=== PATIENT | female | born 1935 | race Caucasian/White ===

== ENCOUNTER 2021-08-21 21:39 | Inpatient (IN) ==
[2021-08-22] MEDS ORDERED: Ondansetron 4 MG/2 ML VIAL IVP PRN ×2 (03:02→19:55)
[2021-08-22] MEDS ORDERED: Naloxone 0.4 MG/ML INJ IVP PRN ×2 (03:02→19:55)
[2021-08-22] MEDS ORDERED: 0.9 % Sodium Chloride 1,000 ML IVC SCH (03:15)
[2021-08-22] MEDS ORDERED: Famotidine 20 MG/2 ML VIAL IVP SCH (06:00)
[2021-08-22] MEDS ORDERED: Chloraseptic Spray 177 ML BOTTLE MM PRN (06:13)
[2021-08-22] MEDS ORDERED: cefTRIAXone 1,000 MG in 0.9 % Sodium Chloride Mini Bag 100 ML IVPB SCH (07:00)
[2021-08-22 07:55] LABS: Hematocrit 43.7 % (35.3-44.9); Hemoglobin 14.6 g/dL (11.5-15.4); Mean Corpuscular HGB Conc 33.4 g/dL (31.6-35.5); Mean Corpuscular Hemoglobin 31.4 pg (28.0-33.3); Platelet Count 356 K/mcL (140-400); Red Blood Count 4.65 M/mcL (3.82-4.97); Red Cell Distribution Width 13.9 % (11.5-14.5); White Blood Count 9.1 K/mcL (4.3-11.1)
[2021-08-22 08:20] LABS: Troponin I 0.14 ng/mL (< 0.04)
[2021-08-22] MEDS: Levalbuterol Neb 1.25 MG/3 ML IH SCH ×3 (09:09→19:56)
[2021-08-22 09:30] LABS: Folate > 22.3 ng/mL (3.0-16.0); Vitamin B12 428 pg/mL (250-1100); Vitamin D 25 Hydroxy 93 ng/mL (30-80)
[2021-08-22] MEDS ORDERED: E-Z-PAQUE (BARIUM SULF) SUSP 1 BOTTLE PO ONE (10:24)
[2021-08-22 10:42] LABS: Sodium 142 mEq/L (136-145)
[2021-08-22 10:43] LABS: BUN/Creatinine Ratio 28 (6-26); Blood Urea Nitrogen 29 mg/dL (8-23); Carbon Dioxide 31 mEq/L (23-29); Chloride 104 mEq/L (98-107); Chol/HDL Ratio 2.5 (0-4.9); Cholesterol 133 mg/dL (< 200); Ferritin 131 ng/mL (10-120); Glucose 107 mg/dL (70-105); HDL Cholesterol 54 mg/dL (40-59); Iron 20 mcg/dL (50-170); LDL Cholesterol,Calculated 64 mg/dL (< 100); Magnesium 2.1 mg/dL (1.6-2.6); Osmolality,Calculated 300 (280-300); Potassium 3.7 mEq/L (3.5-5.1); Triglycerides 75 mg/dL (< 150); eGFR For African Americans > 60 (> 60); eGFR For Non-African Americans 51 (> 60)
[2021-08-22 11:08] LABS: Estimated Average Glucose 134 mg/dl; Hemoglobin A1C 6.3 %
[2021-08-22] MEDS ORDERED: Lidocaine HCL 4 ML Topical Solution (Laryng-O-Jet Kit Sterile Pak) TP ONE (17:56)
[2021-08-22] MEDS ORDERED: Lidocaine -MPF 2% 5 ML VIAL ONE ×2 (17:56→20:34)
[2021-08-22] MEDS ORDERED: *HR* Succinylcholine 200 MG/10 ML VIAL IVP ONE (17:56)
[2021-08-22] MEDS ORDERED: *HR* Rocuronium Bromide 50 MG/5 ML VIAL ONE (17:56)
[2021-08-22] MEDS ORDERED: Ondansetron 4 MG/2 ML VIAL ONE ×2 (17:56→21:44)
[2021-08-22] MEDS: *HR* Metoprolol 5 MG/5 ML VIAL IVP SCH (18:07)
[2021-08-22] MEDS ORDERED: Heparin 1,000 UNITS/500 mL 500 ML ONE (19:29)
[2021-08-22] MEDS ORDERED: *HR* FentaNYL (PF) 100 MCG/2 ML VIAL ONE ×2 (19:45→21:18)
[2021-08-22] MEDS ORDERED: *HR* Propofol 200 MG/20 ML VIAL IVP ONE (19:45)
[2021-08-22] MEDS ORDERED: *HR* Phenylephrine 10 MG/ML VIAL ONE (19:51)
[2021-08-22] MEDS ORDERED: *HR* FentaNYL (PF) 100 MCG/2 ML VIAL IVP PRN (19:55)
[2021-08-22] MEDS ORDERED: *HR* Metoprolol 5 MG/5 ML VIAL IVP PRN (19:55)
[2021-08-22] MEDS ORDERED: Nitroglycerin 0.4 MG TAB.SUBL SL PRN (19:55)
[2021-08-22] MEDS ORDERED: Albuterol 2.5 MG/3 ML NEBULIZER IH PRN (19:55)
[2021-08-22] MEDS ORDERED: CefOXitin 2,000 MG VIAL ONE (20:33)
[2021-08-22] MEDS ORDERED: *HR* Metoprolol 5 MG/5 ML VIAL IVP ONE (21:40)
[2021-08-22] MEDS ORDERED: Acetaminophen IV 1,000 MG/100 ML BAG IVPB ONE (21:49)
[2021-08-22] MEDS ORDERED: Sugammadex Sodium 200 MG/2 ML VIAL IV ONE (22:37)
[2021-08-23] MEDS ORDERED: *HR* FentaNYL (PF) 100 MCG/2 ML VIAL IVP PRN (00:02)
[2021-08-23] MEDS ORDERED: 0.9 % Sodium Chloride 1,000 ML IVC SCH (00:02)
[2021-08-23] MEDS ORDERED: *HR* Metoprolol 5 MG/5 ML VIAL IVP PRN (00:02)
[2021-08-23] MEDS ORDERED: Nitroglycerin 0.4 MG TAB.SUBL SL PRN (00:02)
[2021-08-23] MEDS ORDERED: Ondansetron 4 MG/2 ML VIAL IVP PRN (00:02)
[2021-08-23] MEDS ORDERED: Chloraseptic Spray 177 ML BOTTLE MM PRN (00:02)
[2021-08-23] MEDS ORDERED: Naloxone 0.4 MG/ML INJ IVP PRN ×2 (00:02)
[2021-08-23] MEDS ORDERED: Albuterol 2.5 MG/3 ML NEBULIZER IH PRN (00:02)
[2021-08-23] MEDS: Ondansetron 4 MG/2 ML VIAL IVP PRN ×2 (00:29→12:09)
[2021-08-23] MEDS: *HR* Metoprolol 5 MG/5 ML VIAL IVP SCH ×5 (01:24→23:57)
[2021-08-23 01:46] LABS: Hematocrit 41.7 % (35.3-44.9); Hemoglobin 13.8 g/dL (11.5-15.4); Mean Corpuscular HGB Conc 33.1 g/dL (31.6-35.5); Mean Corpuscular Hemoglobin 31.6 pg (28.0-33.3); Mean Corpuscular Volume 95.4 fL (83.0-100.0); Mean Platelet Volume 11.2 fL (9.4-12.4); Platelet Count 370 K/mcL (140-400); Red Blood Count 4.37 M/mcL (3.82-4.97); Red Cell Distribution Width 13.8 % (11.5-14.5); White Blood Count 11.2 K/mcL (4.3-11.1)
[2021-08-23 02:07] LABS: BUN/Creatinine Ratio 31 (6-26); Blood Urea Nitrogen 27 mg/dL (8-23); Calcium 8.4 mg/dL (8.6-10.3); Carbon Dioxide 21 mEq/L (23-29); Chloride 106 mEq/L (98-107); Glucose 145 mg/dL (70-105); Osmolality,Calculated 300 (280-300); Potassium 3.7 mEq/L (3.5-5.1); Sodium 141 mEq/L (136-145); eGFR For African Americans > 60 (> 60); eGFR For Non-African Americans > 60 (> 60)
[2021-08-23 03:32] LABS: % Iron Saturation 7 % (15-50); Transferrin 209 mg/dL (203-362)
[2021-08-23] MEDS: Levalbuterol Neb 1.25 MG/3 ML IH SCH ×4 (04:00→20:13)
[2021-08-23] MEDS: Morphine Sulfate 2 MG/ML SYRINGE IVP PRN ×2 (06:31→08:31)
[2021-08-23] MEDS ORDERED: cefTRIAXone 1,000 MG in 0.9 % Sodium Chloride Mini Bag 100 ML IVPB SCH (07:00)
[2021-08-23] MEDS ORDERED: Famotidine 20 MG/2 ML VIAL IVP SCH ×2 (09:00)
[2021-08-23] MEDS: Acetaminophen IV 1,000 MG/100 ML BAG IVPB SCH ×3 (12:10→23:56)
[2021-08-24] MEDS: Levalbuterol Neb 1.25 MG/3 ML IH SCH ×4 (04:03→20:10)
[2021-08-24 05:48] LABS: Basophils % 0.3 %; Eosinophils % 0.2 %; Hematocrit 40.6 % (35.3-44.9); Hemoglobin 12.9 g/dL (11.5-15.4); Immature Granulocytes % 0.6 % (0-4); Lymphocytes # 0.6 K/mcL (0.6-4.6); Lymphocytes % 5.1 %; Mean Corpuscular HGB Conc 31.8 g/dL (31.6-35.5); Mean Corpuscular Volume 97.6 fL (83.0-100.0); Mean Platelet Volume 11.1 fL (9.4-12.4); Monocytes # 1.3 K/mcL (0.0-1.3); Monocytes % 11.9 %; Platelet Count 301 K/mcL (140-400); Red Blood Count 4.16 M/mcL (3.82-4.97); Red Cell Distribution Width 14.5 % (11.5-14.5); Segmented Neutrophils % 81.9 %
[2021-08-24] MEDS: Acetaminophen IV 1,000 MG/100 ML BAG IVPB SCH ×3 (06:00→12:00)
[2021-08-24 06:11] LABS: BUN/Creatinine Ratio 33 (6-26); Blood Urea Nitrogen 24 mg/dL (8-23); Calcium 8.6 mg/dL (8.6-10.3); Carbon Dioxide 24 mEq/L (23-29); Chloride 110 mEq/L (98-107); Glucose 131 mg/dL (70-105); Magnesium 1.9 mg/dL (1.6-2.6); Osmolality,Calculated 304 (280-300); Phosphorous 2.3 mg/dL (2.7-4.5); Platelet Estimate Normal (Normal); Potassium 3.9 mEq/L (3.5-5.1); Sodium 144 mEq/L (136-145); eGFR For African Americans > 60 (> 60); eGFR For Non-African Americans > 60 (> 60)
[2021-08-24] MEDS: *HR* Metoprolol 5 MG/5 ML VIAL IVP SCH ×4 (06:29→20:44)
[2021-08-24] MEDS ORDERED: Isovue-370 500 ML BOTTLE IVP ONE (12:07)
[2021-08-24] MEDS ORDERED: Ringers Solution, Lactated 1,000 ML IVC SCH (14:15)
[2021-08-24] MEDS: Pantoprazole 40 MG VIAL IVP SCH (18:09)
[2021-08-24] MEDS: *HR* Heparin 5,000 UNIT/ML VIAL SQ SCH (18:09)
[2021-08-24] MEDS: Ondansetron 4 MG/2 ML VIAL IVP PRN (22:31)
[2021-08-25] MEDS: Acetaminophen IV 1,000 MG/100 ML BAG IVPB SCH ×4 (01:54→12:13)
[2021-08-25] MEDS: *HR* Metoprolol 5 MG/5 ML VIAL IVP SCH ×4 (04:07→21:15)
[2021-08-25] MEDS: Levalbuterol Neb 1.25 MG/3 ML IH SCH ×4 (04:12→20:28)
[2021-08-25 05:13] LABS: BUN/Creatinine Ratio 25 (6-26); Blood Urea Nitrogen 14 mg/dL (8-23); Calcium 8.8 mg/dL (8.6-10.3); Carbon Dioxide 25 mEq/L (23-29); Chloride 106 mEq/L (98-107); Glucose 102 mg/dL (70-105); Magnesium 1.9 mg/dL (1.6-2.6); Osmolality,Calculated 295 (280-300); Phosphorous 2.4 mg/dL (2.7-4.5); Potassium 4.8 mEq/L (3.5-5.1); Sodium 142 mEq/L (136-145); eGFR For African Americans > 60 (> 60); eGFR For Non-African Americans > 60 (> 60)
[2021-08-25 05:22] LABS: Basophils # 0.1 K/mcL (0.0-0.2); Basophils % 0.4 %; Eosinophils # 0.1 K/mcL (0.0-0.6); Eosinophils % 0.8 %; Hematocrit 35.9 % (35.3-44.9); Hemoglobin 11.5 g/dL (11.5-15.4); Immature Granulocytes % 1.2 % (0-4); Immature Platelets 4.6 % (1.1-6.1); Lymphocytes # 0.9 K/mcL (0.6-4.6); Lymphocytes % 7.7 %; Mean Corpuscular Hemoglobin 30.9 pg (28.0-33.3); Mean Corpuscular Volume 96.5 fL (83.0-100.0); Monocytes # 1.3 K/mcL (0.0-1.3); Monocytes % 10.7 %; Neutrophils # 9.3 K/mcL (1.6-8.9); Red Blood Count 3.72 M/mcL (3.82-4.97); Red Cell Distribution Width 14.7 % (11.5-14.5); Segmented Neutrophils % 79.2 %; White Blood Count 11.7 K/mcL (4.3-11.1)
[2021-08-25] MEDS: Pantoprazole 40 MG VIAL IVP SCH ×2 (05:41→16:44)
[2021-08-25] MEDS: *HR* Heparin 5,000 UNIT/ML VIAL SQ SCH ×2 (05:41→16:43)
[2021-08-25 06:30] LABS: Platelet Count 277 K/mcL (140-400); Platelet Estimate Normal (Normal)
[2021-08-26] MEDS: *HR* Metoprolol 5 MG/5 ML VIAL IVP SCH ×2 (02:55→10:35)
[2021-08-26] MEDS: Levalbuterol Neb 1.25 MG/3 ML IH SCH ×4 (04:51→21:06)
[2021-08-26] MEDS: Pantoprazole 40 MG VIAL IVP SCH ×2 (05:50→18:00)
[2021-08-26] MEDS: *HR* Heparin 5,000 UNIT/ML VIAL SQ SCH ×2 (05:50→18:01)
[2021-08-26] MEDS: Venlafaxine XR (24 HR) 37.5 MG CAP.ER.24H PO SCH (12:55)
[2021-08-26] MEDS: Bisacodyl 10 MG RECTAL SUPPOSITORY RC SCH (16:30)
[2021-08-26 18:31] LABS: Magnesium 1.4 mg/dL (1.6-2.6); Phosphorous 2.2 mg/dL (2.7-4.5)
[2021-08-27] MEDS: Levalbuterol Neb 1.25 MG/3 ML IH SCH ×4 (03:32→21:47)
[2021-08-27 05:02] LABS: Basophils # 0.1 K/mcL (0.0-0.2); Basophils % 0.6 %; Eosinophils # 0.1 K/mcL (0.0-0.6); Eosinophils % 0.9 %; Hematocrit 35.8 % (35.3-44.9); Immature Granulocytes % 3.7 % (0-4); Lymphocytes # 0.6 K/mcL (0.6-4.6); Lymphocytes % 7.1 %; Mean Corpuscular HGB Conc 33.5 g/dL (31.6-35.5); Mean Corpuscular Hemoglobin 31.4 pg (28.0-33.3); Mean Corpuscular Volume 93.7 fL (83.0-100.0); Mean Platelet Volume 10.9 fL (9.4-12.4); Monocytes # 1.2 K/mcL (0.0-1.3); Monocytes % 14.7 %; Platelet Count 354 K/mcL (140-400); Red Blood Count 3.82 M/mcL (3.82-4.97); Red Cell Distribution Width 13.5 % (11.5-14.5); White Blood Count 8.4 K/mcL (4.3-11.1)
[2021-08-27 05:13] LABS: Neutrophils # 6.1 K/mcL (1.6-8.9)
[2021-08-27] MEDS: *HR* Heparin 5,000 UNIT/ML VIAL SQ SCH (05:15)
[2021-08-27] MEDS: Pantoprazole 40 MG VIAL IVP SCH ×2 (05:16→17:30)
[2021-08-27 05:28] LABS: BUN/Creatinine Ratio 21 (6-26); Blood Urea Nitrogen 12 mg/dL (8-23); Calcium 9.6 mg/dL (8.6-10.3); Carbon Dioxide 28 mEq/L (23-29); Chloride 101 mEq/L (98-107); Glucose 141 mg/dL (70-105); Osmolality,Calculated 288 (280-300); Potassium 3.1 mEq/L (3.5-5.1); Sodium 138 mEq/L (136-145); eGFR For African Americans > 60 (> 60); eGFR For Non-African Americans > 60 (> 60)
[2021-08-27 05:39] LABS: Platelet Estimate Normal (Normal)
[2021-08-27] MEDS: Ondansetron 4 MG/2 ML VIAL IVP PRN ×2 (06:35→16:15)
[2021-08-27] MEDS ORDERED: Potassium Phosphate 44 MEQ in 0.9 % Sodium Chloride 250 ML IVPB ONE (07:20)
[2021-08-27] MEDS: Aspirin Enteric Coated 81 MG Tablet PO SCH (09:08)
[2021-08-27] MEDS: Venlafaxine XR (24 HR) 37.5 MG CAP.ER.24H PO SCH (09:11)
[2021-08-27] MEDS: Bisacodyl 10 MG RECTAL SUPPOSITORY RC SCH (09:11)
[2021-08-27] MEDS ORDERED: Acetaminophen IV 1,000 MG/100 ML BAG IVPB ONE (16:24)
[2021-08-27] MEDS ORDERED: Acetaminophen 325 MG TABLET PO PRN (22:00)
[2021-08-28] MEDS: Levalbuterol Neb 1.25 MG/3 ML IH SCH ×4 (04:25→22:23)
[2021-08-28] MEDS: Pantoprazole 40 MG VIAL IVP SCH (05:27)
[2021-08-28 07:00] LABS: Magnesium 1.7 mg/dL (1.6-2.6); Phosphorous 4.6 mg/dL (2.7-4.5)
[2021-08-28 07:59] LABS: BUN/Creatinine Ratio 23 (6-26); Blood Urea Nitrogen 17 mg/dL (8-23); Carbon Dioxide 26 mEq/L (23-29); Chloride 101 mEq/L (98-107); Glucose 100 mg/dL (70-105); Osmolality,Calculated 284 (280-300); Potassium 3.8 mEq/L (3.5-5.1); Sodium 136 mEq/L (136-145); eGFR For African Americans > 60 (> 60); eGFR For Non-African Americans > 60 (> 60)
[2021-08-28] MEDS: Aspirin Enteric Coated 81 MG Tablet PO SCH (08:42)
[2021-08-28] MEDS: Venlafaxine XR (24 HR) 37.5 MG CAP.ER.24H PO SCH (08:42)
[2021-08-28] MEDS: Bisacodyl 10 MG RECTAL SUPPOSITORY RC SCH (08:42)
[2021-08-28 20:08] VITALS: BP 98/62
[2021-08-29] MEDS: Levalbuterol Neb 1.25 MG/3 ML IH SCH ×2 (04:33→11:41)
[2021-08-29 06:58] VITALS: PULSE 80; TEMP 97.2
[2021-08-29] MEDS: Aspirin Enteric Coated 81 MG Tablet PO SCH (08:53)
[2021-08-29] MEDS: Bisacodyl 10 MG RECTAL SUPPOSITORY RC SCH (08:54)
[2021-08-29] MEDS: Venlafaxine XR (24 HR) 37.5 MG CAP.ER.24H PO SCH (08:55)
[2021-08-29 11:43] VITALS: O2SAT 97
== END 2021-08-29 14:23 | disposition home health service (06) | DRG 329 ==
LOC: 3ANU → SUATTDRO 08-22 00:51
PROVIDERS: ADMIT Internal Medicine; ATTEND Internal Medicine

== ENCOUNTER 2021-08-31 00:51 | Inpatient (IN) ==
[2021-08-31] MEDS ORDERED: Naloxone 0.4 MG/ML INJ IVP PRN (03:08)
[2021-08-31] MEDS ORDERED: 0.9 % Sodium Chloride 1,000 ML IVC SCH (03:15)
[2021-08-31 03:31] LABS: Basophils % 0.9 %; Eosinophils # 0.1 K/mcL (0.0-0.6); Eosinophils % 0.4 %; Hematocrit 29.4 % (35.3-44.9); Immature Granulocytes % 5.9 % (0-4); Lymphocytes # 1.1 K/mcL (0.6-4.6); Lymphocytes % 6.7 %; Mean Corpuscular Hemoglobin 30.9 pg (28.0-33.3); Mean Corpuscular Volume 93.6 fL (83.0-100.0); Mean Platelet Volume 10.2 fL (9.4-12.4); Monocytes # 1.4 K/mcL (0.0-1.3); Monocytes % 8.3 %; Neutrophils # 12.7 K/mcL (1.6-8.9); Platelet Count 326 K/mcL (140-400); Red Blood Count 3.14 M/mcL (3.82-4.97); Red Cell Distribution Width 14.2 % (11.5-14.5); Segmented Neutrophils % 77.8 %
[2021-08-31 03:33] LABS: Basophils # 0.2 K/mcL (0.0-0.2); Hemoglobin 9.7 g/dL (11.5-15.4); White Blood Count 16.3 K/mcL (4.3-11.1)
[2021-08-31 03:44] LABS: INR 1.1; Prothrombin Time 12.3 Seconds (9.4-12.1)
[2021-08-31 03:47] LABS: Activated Partial Thrombo Time 28.1 Seconds (26.0-36.0)
[2021-08-31 03:48] LABS: Large Platelets Present (Not Present); Platelet Estimate Normal (Normal)
[2021-08-31 03:54] LABS: Alanine Aminotransferase 14 Units/L (7-52); Albumin 2.4 g/dL (3.5-5.7); Albumin/Globulin Ratio 1.2 (1.1-2.2); Alkaline Phosphatase 57 Units/L (34-104); Aspartate Amino Transferase 23 Units/L (13-39); BUN/Creatinine Ratio 27 (6-26); Bilirubin,Total 0.3 mg/dL (0.3-1.0); Blood Urea Nitrogen 14 mg/dL (8-23); Calcium 7.6 mg/dL (8.6-10.3); Carbon Dioxide 27 mEq/L (23-29); Chloride 105 mEq/L (98-107); Glucose 63 mg/dL (70-105); Osmolality,Calculated 285 (280-300); Potassium 3.4 mEq/L (3.5-5.1); Sodium 138 mEq/L (136-145); Total Protein 4.4 g/dL (6.4-8.9); eGFR For African Americans > 60 (> 60); eGFR For Non-African Americans > 60 (> 60)
[2021-08-31 03:59] LABS: Procalcitonin 0.72 ng/mL (0.00-0.15)
[2021-08-31] MEDS: Azithromycin 500 MG in 0.9 % Sodium Chloride 250 ML IVPB SCH (06:42)
[2021-08-31] MEDS ORDERED: Ipratropium 1 PUFF INHALER IH PRN (06:46)
[2021-08-31] MEDS ORDERED: Potassium Chloride 40 MEQ, Lidocaine 1% 2 ML in 0.9 % Sodium Chloride 500 ML IVPB ONE (07:26)
[2021-08-31] MEDS: 0.9 % Sodium Chloride 1,000 ML IVC SCH ×2 (07:47→21:36)
[2021-08-31] MEDS: Piperacillin/Tazobactam 3.375 GM in 0.9 % Sodium Chloride Mini Bag 100 ML IVPB SCH ×2 (07:47→15:26)
[2021-08-31] MEDS ORDERED: Vancomycin 1,500 MG/265 ML IV.SOLN IVPB ONE (08:00)
[2021-08-31 10:28] LABS: % Iron Saturation 30 % (15-50); Iron 51 mcg/dL (50-170); Transferrin 122 mg/dL (203-362)
[2021-08-31 10:41] LABS: Thyroid Stimulating Hormone 2.258 mcIU/mL (0.340-5.600)
[2021-08-31 10:47] LABS: Ferritin 124 ng/mL (10-120)
[2021-08-31 10:54] LABS: Folate > 22.3 ng/mL (3.0-16.0); Vitamin B12 1204 pg/mL (250-1100)
[2021-08-31] MEDS ORDERED: Dextrose Gel 15 GM/37.5 ML TUBE PO PRN ×2 (12:03)
[2021-08-31] MEDS ORDERED: *HR* Dextrose 50 % in Water (Syg) 50 ML SYRINGE IVP PRN (12:03)
[2021-08-31] MEDS ORDERED: D5% in Water 1,000 ML IVC PRN (12:03)
[2021-08-31] MEDS ORDERED: Vancomycin 1,250 MG/262.5 ML IV.SOLN IVPB SCH (20:00)
[2021-08-31] MEDS: Ondansetron 4 MG/2 ML VIAL IVP PRN (20:37)
[2021-09-01] MEDS: Piperacillin/Tazobactam 3.375 GM in 0.9 % Sodium Chloride Mini Bag 100 ML IVPB SCH ×4 (00:04→23:25)
[2021-09-01 04:31] LABS: Basophils % 0.3 %; Eosinophils # 0.2 K/mcL (0.0-0.6); Eosinophils % 1.3 %; Hematocrit 29.7 % (35.3-44.9); Hemoglobin 9.4 g/dL (11.5-15.4); Immature Granulocytes % 9.8 % (0-4); Lymphocytes % 7.3 %; Mean Corpuscular HGB Conc 31.6 g/dL (31.6-35.5); Mean Corpuscular Hemoglobin 30.4 pg (28.0-33.3); Mean Corpuscular Volume 96.1 fL (83.0-100.0); Mean Platelet Volume 10.3 fL (9.4-12.4); Monocytes # 1.6 K/mcL (0.0-1.3); Monocytes % 10.1 %; Neutrophils # 11.2 K/mcL (1.6-8.9); Nucleated Red Blood Cells 0.1 /100 WBC (0); Platelet Count 303 K/mcL (140-400); Red Blood Count 3.09 M/mcL (3.82-4.97); Red Cell Distribution Width 14.5 % (11.5-14.5); Segmented Neutrophils % 71.2 %; White Blood Count 15.7 K/mcL (4.3-11.1)
[2021-09-01 04:49] LABS: BUN/Creatinine Ratio 13 (6-26); Blood Urea Nitrogen 7 mg/dL (8-23); Calcium 6.9 mg/dL (8.6-10.3); Carbon Dioxide 26 mEq/L (23-29); Chloride 109 mEq/L (98-107); Glucose 79 mg/dL (70-105); Osmolality,Calculated 285 (280-300); Potassium 3.4 mEq/L (3.5-5.1); Sodium 139 mEq/L (136-145); eGFR For African Americans > 60 (> 60); eGFR For Non-African Americans > 60 (> 60)
[2021-09-01 05:04] LABS: Basophils # 0.1 K/mcL (0.0-0.2); Lymphocytes # 1.2 K/mcL (0.6-4.6)
[2021-09-01 05:39] LABS: Platelet Estimate Normal (Normal)
[2021-09-01] MEDS: Azithromycin 500 MG in 0.9 % Sodium Chloride 250 ML IVPB SCH (06:15)
[2021-09-01] MEDS: Aspirin Enteric Coated 81 MG Tablet PO SCH (07:49)
[2021-09-01] MEDS: Venlafaxine XR (24 HR) 37.5 MG CAP.ER.24H PO SCH (07:50)
[2021-09-01] MEDS: Cholecalciferol (D-3) 1,000 UNIT (25MCG) TABLET PO SCH (07:50)
[2021-09-01] MEDS: Ondansetron 4 MG/2 ML VIAL IVP PRN (07:51)
[2021-09-01] MEDS ORDERED: Vancomycin 1,250 MG/262.5 ML IV.SOLN IVPB SCH (08:00)
[2021-09-01] MEDS ORDERED: PRAVASTATIN SODIUM 40 MG PO SCH (09:00)
[2021-09-01] MEDS ORDERED: Mirabegron [Myrbetriq] 50 MG Tab.Er.24h PO SCH (09:00)
[2021-09-01] MEDS: 0.9 % Sodium Chloride 1,000 ML IVC SCH ×2 (10:58→23:26)
[2021-09-01] MEDS: Budesonide/Formoterol 160/4.5 1 PUFF INH IH SCH (22:44)
[2021-09-02 04:59] LABS: BUN/Creatinine Ratio 9 (6-26); Blood Urea Nitrogen 5 mg/dL (8-23); Calcium 6.8 mg/dL (8.6-10.3); Carbon Dioxide 28 mEq/L (23-29); Chloride 108 mEq/L (98-107); Glucose 95 mg/dL (70-105); Osmolality,Calculated 289 (280-300); Potassium 3.4 mEq/L (3.5-5.1); Sodium 141 mEq/L (136-145); eGFR For African Americans > 60 (> 60); eGFR For Non-African Americans > 60 (> 60)
[2021-09-02 05:03] LABS: Hematocrit 30.3 % (35.3-44.9); Hemoglobin 9.7 g/dL (11.5-15.4); Mean Corpuscular Hemoglobin 30.7 pg (28.0-33.3); Mean Corpuscular Volume 95.9 fL (83.0-100.0); Mean Platelet Volume 10.5 fL (9.4-12.4); Platelet Count 318 K/mcL (140-400); Red Blood Count 3.16 M/mcL (3.82-4.97); Red Cell Distribution Width 14.6 % (11.5-14.5); White Blood Count 16.7 K/mcL (4.3-11.1)
[2021-09-02] MEDS: Ondansetron 4 MG/2 ML VIAL IVP PRN ×2 (06:42→17:05)
[2021-09-02] MEDS: Azithromycin 500 MG in 0.9 % Sodium Chloride 250 ML IVPB SCH (06:42)
[2021-09-02] MEDS: Budesonide/Formoterol 160/4.5 1 PUFF INH IH SCH ×2 (08:07→22:18)
[2021-09-02 08:08] LABS: Neutrophils # 14.7 K/mcL (1.6-8.9); Platelet Estimate Normal (Normal)
[2021-09-02] MEDS: Tiotropium 10 INH DOSE IH SCH (08:10)
[2021-09-02] MEDS ORDERED: Bisacodyl 10 MG RECTAL SUPPOSITORY RC ONE (09:00)
[2021-09-02] MEDS: Piperacillin/Tazobactam 3.375 GM in 0.9 % Sodium Chloride Mini Bag 100 ML IVPB SCH ×2 (10:22→17:05)
[2021-09-02] MEDS: Aspirin Enteric Coated 81 MG Tablet PO SCH (10:23)
[2021-09-02] MEDS: Venlafaxine XR (24 HR) 37.5 MG CAP.ER.24H PO SCH (10:24)
[2021-09-02] MEDS: Cholecalciferol (D-3) 1,000 UNIT (25MCG) TABLET PO SCH (10:25)
[2021-09-02] MEDS: 0.9 % Sodium Chloride 1,000 ML IVC SCH (13:34)
[2021-09-03] MEDS: Piperacillin/Tazobactam 3.375 GM in 0.9 % Sodium Chloride Mini Bag 100 ML IVPB SCH ×3 (00:15→14:35)
[2021-09-03] MEDS: 0.9 % Sodium Chloride 1,000 ML IVC SCH (03:13)
[2021-09-03] MEDS: Ondansetron 4 MG/2 ML VIAL IVP PRN (06:58)
[2021-09-03 07:14] LABS: Hematocrit 30.4 % (35.3-44.9); Mean Corpuscular HGB Conc 32.9 g/dL (31.6-35.5); Mean Corpuscular Hemoglobin 31.5 pg (28.0-33.3); Mean Corpuscular Volume 95.9 fL (83.0-100.0); Mean Platelet Volume 10.2 fL (9.4-12.4); Platelet Count 315 K/mcL (140-400); Red Blood Count 3.17 M/mcL (3.82-4.97); Red Cell Distribution Width 14.4 % (11.5-14.5); White Blood Count 14.2 K/mcL (4.3-11.1)
[2021-09-03 07:34] LABS: BUN/Creatinine Ratio 9 (6-26); Blood Urea Nitrogen 4 mg/dL (8-23); Calcium 7.4 mg/dL (8.6-10.3); Carbon Dioxide 26 mEq/L (23-29); Chloride 108 mEq/L (98-107); Glucose 86 mg/dL (70-105); Osmolality,Calculated 284 (280-300); Potassium 3.8 mEq/L (3.5-5.1); Sodium 139 mEq/L (136-145); eGFR For African Americans > 60 (> 60); eGFR For Non-African Americans > 60 (> 60)
[2021-09-03] MEDS: Azithromycin 500 MG in 0.9 % Sodium Chloride 250 ML IVPB SCH (07:48)
[2021-09-03] MEDS: Venlafaxine XR (24 HR) 37.5 MG CAP.ER.24H PO SCH (07:50)
[2021-09-03] MEDS: Aspirin Enteric Coated 81 MG Tablet PO SCH (07:50)
[2021-09-03] MEDS: Cholecalciferol (D-3) 1,000 UNIT (25MCG) TABLET PO SCH (07:50)
[2021-09-03] MEDS: Tiotropium 10 INH DOSE IH SCH (08:05)
[2021-09-03] MEDS: Budesonide/Formoterol 160/4.5 1 PUFF INH IH SCH ×2 (08:05→23:35)
[2021-09-03 08:22] LABS: Eosinophils # 0.3 K/mcL (0.0-0.6); Monocytes # 0.7 K/mcL (0.0-1.3); Neutrophils # 10.8 K/mcL (1.6-8.9); Platelet Estimate Normal (Normal)
[2021-09-03] MEDS: Ipratropium/Albuterol Neb 3 ML IH SCH ×4 (11:25→23:35)
[2021-09-04] MEDS: Ipratropium/Albuterol Neb 3 ML IH SCH ×4 (04:23→20:39)
[2021-09-04 04:31] LABS: Hematocrit 29.6 % (35.3-44.9); Hemoglobin 9.7 g/dL (11.5-15.4); Mean Corpuscular HGB Conc 32.8 g/dL (31.6-35.5); Mean Corpuscular Volume 94.6 fL (83.0-100.0); Platelet Count 326 K/mcL (140-400); Red Blood Count 3.13 M/mcL (3.82-4.97); Red Cell Distribution Width 14.6 % (11.5-14.5); White Blood Count 12.2 K/mcL (4.3-11.1)
[2021-09-04 04:55] LABS: BUN/Creatinine Ratio 8 (6-26); Blood Urea Nitrogen 4 mg/dL (8-23); Calcium 7.8 mg/dL (8.6-10.3); Carbon Dioxide 29 mEq/L (23-29); Chloride 107 mEq/L (98-107); Glucose 102 mg/dL (70-105); Osmolality,Calculated 283 (280-300); Potassium 3.7 mEq/L (3.5-5.1); Sodium 138 mEq/L (136-145); eGFR For African Americans > 60 (> 60); eGFR For Non-African Americans > 60 (> 60)
[2021-09-04 04:58] LABS: Basophils # 0.2 K/mcL (0.0-0.2); Lymphocytes # 1.7 K/mcL (0.6-4.6); Monocytes # 0.5 K/mcL (0.0-1.3); Neutrophils # 9.5 K/mcL (1.6-8.9); Platelet Estimate Normal (Normal)
[2021-09-04] MEDS: Aspirin Enteric Coated 81 MG Tablet PO SCH (08:32)
[2021-09-04] MEDS: Cholecalciferol (D-3) 1,000 UNIT (25MCG) TABLET PO SCH (08:33)
[2021-09-04] MEDS: Venlafaxine XR (24 HR) 37.5 MG CAP.ER.24H PO SCH (08:33)
[2021-09-04] MEDS: Bisacodyl 10 MG RECTAL SUPPOSITORY RC SCH (08:34)
[2021-09-04] MEDS: Azithromycin 500 MG in 0.9 % Sodium Chloride 250 ML IVPB SCH (08:34)
[2021-09-04] MEDS: Budesonide/Formoterol 160/4.5 1 PUFF INH IH SCH ×2 (10:52→20:39)
[2021-09-04] MEDS: Piperacillin/Tazobactam 3.375 GM in 0.9 % Sodium Chloride Mini Bag 100 ML IVPB SCH ×3 (12:33→20:27)
[2021-09-04] MEDS ORDERED: Chloraseptic Spray 177 ML BOTTLE MM PRN (23:31)
[2021-09-05] MEDS: Ipratropium/Albuterol Neb 3 ML IH SCH ×2 (04:36→07:58)
[2021-09-05] MEDS: Piperacillin/Tazobactam 3.375 GM in 0.9 % Sodium Chloride Mini Bag 100 ML IVPB SCH (05:39)
[2021-09-05 06:25] LABS: Hematocrit 28.6 % (35.3-44.9); Hemoglobin 9.5 g/dL (11.5-15.4); Mean Corpuscular HGB Conc 33.2 g/dL (31.6-35.5); Mean Corpuscular Hemoglobin 31.1 pg (28.0-33.3); Mean Corpuscular Volume 93.8 fL (83.0-100.0); Mean Platelet Volume 10.1 fL (9.4-12.4); Platelet Count 333 K/mcL (140-400); Red Blood Count 3.05 M/mcL (3.82-4.97); Red Cell Distribution Width 14.8 % (11.5-14.5)
[2021-09-05 06:49] LABS: BUN/Creatinine Ratio 8 (6-26); Blood Urea Nitrogen 5 mg/dL (8-23); Calcium 8.6 mg/dL (8.6-10.3); Carbon Dioxide 30 mEq/L (23-29); Chloride 105 mEq/L (98-107); Glucose 90 mg/dL (70-105); Osmolality,Calculated 287 (280-300); Potassium 3.3 mEq/L (3.5-5.1); Sodium 140 mEq/L (136-145); eGFR For African Americans > 60 (> 60); eGFR For Non-African Americans > 60 (> 60)
[2021-09-05 07:18] LABS: Anisocytosis 1+ (Not Present); Eosinophils # 0.4 K/mcL (0.0-0.6); Lymphocytes # 1.5 K/mcL (0.6-4.6); Monocytes # 0.4 K/mcL (0.0-1.3); Neutrophils # 8.4 K/mcL (1.6-8.9); Platelet Estimate Normal (Normal); Reactive Lymphocytes Present (Not Present)
[2021-09-05] MEDS: Budesonide/Formoterol 160/4.5 1 PUFF INH IH SCH (07:58)
[2021-09-05] MEDS: Cholecalciferol (D-3) 1,000 UNIT (25MCG) TABLET PO SCH (09:37)
[2021-09-05] MEDS: Aspirin Enteric Coated 81 MG Tablet PO SCH (09:37)
[2021-09-05] MEDS: Venlafaxine XR (24 HR) 37.5 MG CAP.ER.24H PO SCH (09:37)
[2021-09-05] MEDS: Bisacodyl 10 MG RECTAL SUPPOSITORY RC SCH (09:38)
[2021-09-05 11:20] LABS: Adenovirus Not Detected (Not Detect); Bordetella Pertussis Not Detected (Not Detect); Chlamydophila pneumoniae Not Detected (Not Detect); Coronavirus 229E Not Detected (Not Detect); Coronavirus HKU1 Not Detected (Not Detect); Coronavirus NL63 Not Detected (Not Detect); Coronavirus OC43 Not Detected (Not Detect); Human Metapneumovirus Not Detected (Not Detect); Human Rhinovirus/Enterovirus Not Detected (Not Detect); Influenza A Subtype 2009 H1 Not Detected (Not Detect); Influenza B Not Detected (Not Detect); Mycoplasma pneumoniae Not Detected (Not Detect); Parainfluenza Virus 1 Not Detected (Not Detect); Parainfluenza Virus 2 Not Detected (Not Detect); Parainfluenza Virus 3 Not Detected (Not Detect); Parainfluenza Virus 4 Not Detected (Not Detect); Respiratory Syncytial Virus Not Detected (Not Detect); SARS-CoV-2 Not Detected (Not Detect)
[2021-09-05 11:27] VITALS: BP 120/76; PULSE 81; TEMP 98.5; O2SAT 97
== END 2021-09-05 13:58 | disposition other institution (70) | DRG 871 ==
LOC: 3ANU → SUATTDRO 02:48 → 3ANU 09-02 09:30
PROVIDERS: ADMIT Internal Medicine; ATTEND Family Medicine

== ENCOUNTER 2021-09-23 02:45 | Inpatient (IN) ==
[2021-09-23] MEDS ORDERED: Naloxone 0.4 MG/ML INJ IVP PRN (13:23)
[2021-09-23] MEDS: 0.9 % Sodium Chloride 1,000 ML IVC SCH (16:48)
[2021-09-23] MEDS: Ondansetron 4 MG/2 ML VIAL IVP PRN (16:48)
[2021-09-23] MEDS: *HR* Heparin 5,000 UNIT/ML VIAL SQ SCH (16:49)
[2021-09-23] MEDS: Ipratropium/Albuterol Neb 3 ML IH SCH ×2 (17:58→21:48)
[2021-09-23] MEDS: (Pravastatin Sodium [Pravachol] 40 MG Tablet) PO SCH (21:31)
[2021-09-24] MEDS: *HR* Heparin 5,000 UNIT/ML VIAL SQ SCH ×3 (01:47→17:17)
[2021-09-24] MEDS: 0.9 % Sodium Chloride 1,000 ML IVC SCH (02:38)
[2021-09-24 02:58] LABS: Basophils % 0.4 %; Eosinophils # 0.3 K/mcL (0.0-0.6); Eosinophils % 3.1 %; Hematocrit 34.4 % (35.3-44.9); Hemoglobin 11.1 g/dL (11.5-15.4); Immature Granulocytes % 0.4 % (0-4); Lymphocytes # 0.8 K/mcL (0.6-4.6); Lymphocytes % 7.1 %; Mean Corpuscular HGB Conc 32.3 g/dL (31.6-35.5); Mean Corpuscular Hemoglobin 31.6 pg (28.0-33.3); Mean Platelet Volume 10.7 fL (9.4-12.4); Monocytes % 9.3 %; Neutrophils # 8.5 K/mcL (1.6-8.9); Platelet Count 363 K/mcL (140-400); Red Blood Count 3.51 M/mcL (3.82-4.97); Red Cell Distribution Width 16.6 % (11.5-14.5); Segmented Neutrophils % 79.7 %; White Blood Count 10.7 K/mcL (4.3-11.1)
[2021-09-24 03:09] LABS: Alanine Aminotransferase 35 Units/L (7-52); Albumin 3.2 g/dL (3.5-5.7); Albumin/Globulin Ratio 1.2 (1.1-2.2); Alkaline Phosphatase 53 Units/L (34-104); Aspartate Amino Transferase 47 Units/L (13-39); BUN/Creatinine Ratio 25 (6-26); Bilirubin,Total 0.4 mg/dL (0.3-1.0); Blood Urea Nitrogen 22 mg/dL (8-23); Carbon Dioxide 27 mEq/L (23-29); Chloride 105 mEq/L (98-107); Globulin 2.7 g/dL (2.4-3.5); Glucose 123 mg/dL (70-105); Magnesium 1.9 mg/dL (1.6-2.6); Osmolality,Calculated 297 (280-300); Phosphorous 4.1 mg/dL (2.7-4.5); Potassium 3.6 mEq/L (3.5-5.1); Sodium 141 mEq/L (136-145); Total Protein 5.9 g/dL (6.4-8.9); eGFR For African Americans > 60 (> 60); eGFR For Non-African Americans > 60 (> 60)
[2021-09-24] MEDS: Ipratropium/Albuterol Neb 3 ML IH SCH ×4 (03:18→20:05)
[2021-09-24] MEDS: Venlafaxine XR (24 HR) 37.5 MG CAP.ER.24H PO SCH (06:42)
[2021-09-24] MEDS: Ondansetron 4 MG/2 ML VIAL IVP PRN ×2 (11:25→17:41)
[2021-09-24] MEDS: Tiotropium 10 INH DOSE IH SCH (11:29)
[2021-09-24] MEDS: Budesonide/Formoterol 160/4.5 1 PUFF INH IH SCH ×2 (11:29→20:05)
[2021-09-24] MEDS: (Pravastatin Sodium [Pravachol] 40 MG Tablet) PO SCH (22:38)
[2021-09-25] MEDS: *HR* Heparin 5,000 UNIT/ML VIAL SQ SCH ×3 (02:27→16:43)
[2021-09-25] MEDS: Ipratropium/Albuterol Neb 3 ML IH SCH ×4 (03:59→20:06)
[2021-09-25 05:28] LABS: Basophils % 0.3 %; Eosinophils # 0.1 K/mcL (0.0-0.6); Eosinophils % 0.7 %; Hematocrit 38.4 % (35.3-44.9); Hemoglobin 11.9 g/dL (11.5-15.4); Immature Granulocytes % 0.4 % (0-4); Lymphocytes # 0.8 K/mcL (0.6-4.6); Lymphocytes % 6.3 %; Mean Corpuscular Hemoglobin 30.8 pg (28.0-33.3); Mean Corpuscular Volume 99.5 fL (83.0-100.0); Mean Platelet Volume 10.9 fL (9.4-12.4); Monocytes # 1.2 K/mcL (0.0-1.3); Monocytes % 9.1 %; Neutrophils # 10.5 K/mcL (1.6-8.9); Platelet Count 407 K/mcL (140-400); Red Blood Count 3.86 M/mcL (3.82-4.97); Red Cell Distribution Width 16.4 % (11.5-14.5); Segmented Neutrophils % 83.2 %; White Blood Count 12.6 K/mcL (4.3-11.1)
[2021-09-25 05:41] LABS: BUN/Creatinine Ratio 26 (6-26); Blood Urea Nitrogen 18 mg/dL (8-23); Calcium 9.9 mg/dL (8.6-10.3); Carbon Dioxide 26 mEq/L (23-29); Chloride 107 mEq/L (98-107); Glucose 110 mg/dL (70-105); Osmolality,Calculated 307 (280-300); Potassium 3.5 mEq/L (3.5-5.1); Sodium 147 mEq/L (136-145); eGFR For African Americans > 60 (> 60); eGFR For Non-African Americans > 60 (> 60)
[2021-09-25] MEDS: Tiotropium 10 INH DOSE IH SCH (07:54)
[2021-09-25] MEDS: Budesonide/Formoterol 160/4.5 1 PUFF INH IH SCH ×2 (07:54→20:05)
[2021-09-25] MEDS: Venlafaxine XR (24 HR) 37.5 MG CAP.ER.24H PO SCH (09:01)
[2021-09-25] MEDS: predniSONE 20 MG TABLET PO SCH (12:33)
[2021-09-25] MEDS: Ondansetron 4 MG/2 ML VIAL IVP PRN (19:11)
[2021-09-25] MEDS ORDERED: Acetaminophen 325 MG TABLET PO PRN (20:22)
[2021-09-26] MEDS: (Pravastatin Sodium [Pravachol] 40 MG Tablet) PO SCH (00:54)
[2021-09-26] MEDS: *HR* Heparin 5,000 UNIT/ML VIAL SQ SCH ×3 (01:02→14:23)
[2021-09-26] MEDS: Ondansetron 4 MG/2 ML VIAL IVP PRN ×4 (02:26→21:19)
[2021-09-26] MEDS: *HR* OxyCODONE Immed Rel 5 MG TABLET PO PRN ×2 (02:31→21:19)
[2021-09-26] MEDS: Ipratropium/Albuterol Neb 3 ML IH SCH ×4 (03:46→20:16)
[2021-09-26 05:52] LABS: Basophils % 0.2 %; Hematocrit 33.9 % (35.3-44.9); Immature Granulocytes % 0.5 % (0-4); Lymphocytes # 0.4 K/mcL (0.6-4.6); Lymphocytes % 3.3 %; Mean Corpuscular HGB Conc 32.4 g/dL (31.6-35.5); Mean Corpuscular Hemoglobin 31.1 pg (28.0-33.3); Mean Corpuscular Volume 95.8 fL (83.0-100.0); Mean Platelet Volume 10.5 fL (9.4-12.4); Monocytes % 8.3 %; Platelet Count 349 K/mcL (140-400); Red Blood Count 3.54 M/mcL (3.82-4.97); Red Cell Distribution Width 15.4 % (11.5-14.5); Segmented Neutrophils % 87.7 %; White Blood Count 11.4 K/mcL (4.3-11.1)
[2021-09-26 06:18] LABS: BUN/Creatinine Ratio 20 (6-26); Blood Urea Nitrogen 14 mg/dL (8-23); Calcium 8.7 mg/dL (8.6-10.3); Carbon Dioxide 28 mEq/L (23-29); Chloride 100 mEq/L (98-107); Glucose 145 mg/dL (70-105); Magnesium 1.7 mg/dL (1.6-2.6); Osmolality,Calculated 285 (280-300); Sodium 136 mEq/L (136-145); eGFR For African Americans > 60 (> 60); eGFR For Non-African Americans > 60 (> 60)
[2021-09-26] MEDS: predniSONE 20 MG TABLET PO SCH (07:47)
[2021-09-26] MEDS: Venlafaxine XR (24 HR) 37.5 MG CAP.ER.24H PO SCH (07:47)
[2021-09-26] MEDS: Budesonide/Formoterol 160/4.5 1 PUFF INH IH SCH ×2 (10:41→20:16)
[2021-09-26] MEDS: Tiotropium 10 INH DOSE IH SCH (10:41)
[2021-09-27] MEDS: *HR* Heparin 5,000 UNIT/ML VIAL SQ SCH ×3 (00:09→15:06)
[2021-09-27] MEDS: Ipratropium/Albuterol Neb 3 ML IH SCH ×3 (03:46→15:18)
[2021-09-27 07:01] LABS: Basophils % 0.1 %; Eosinophils % 0.2 %; Hematocrit 34.3 % (35.3-44.9); Hemoglobin 11.1 g/dL (11.5-15.4); Immature Granulocytes % 0.8 % (0-4); Lymphocytes # 0.8 K/mcL (0.6-4.6); Lymphocytes % 7.6 %; Mean Corpuscular HGB Conc 32.4 g/dL (31.6-35.5); Mean Corpuscular Hemoglobin 31.9 pg (28.0-33.3); Mean Corpuscular Volume 98.6 fL (83.0-100.0); Mean Platelet Volume 10.6 fL (9.4-12.4); Monocytes # 1.1 K/mcL (0.0-1.3); Monocytes % 9.9 %; Neutrophils # 8.8 K/mcL (1.6-8.9); Platelet Count 356 K/mcL (140-400); Red Blood Count 3.48 M/mcL (3.82-4.97); Red Cell Distribution Width 15.5 % (11.5-14.5); Segmented Neutrophils % 81.4 %; White Blood Count 10.8 K/mcL (4.3-11.1)
[2021-09-27 07:23] LABS: BUN/Creatinine Ratio 24 (6-26); Blood Urea Nitrogen 17 mg/dL (8-23); Carbon Dioxide 26 mEq/L (23-29); Chloride 106 mEq/L (98-107); Glucose 106 mg/dL (70-105); Magnesium 1.7 mg/dL (1.6-2.6); Osmolality,Calculated 284 (280-300); Potassium 4.9 mEq/L (3.5-5.1); Sodium 136 mEq/L (136-145); eGFR For African Americans > 60 (> 60); eGFR For Non-African Americans > 60 (> 60)
[2021-09-27] MEDS: Tiotropium 10 INH DOSE IH SCH (08:43)
[2021-09-27] MEDS: Budesonide/Formoterol 160/4.5 1 PUFF INH IH SCH (08:43)
[2021-09-27] MEDS: predniSONE 20 MG TABLET PO SCH (08:51)
[2021-09-27] MEDS: Ondansetron 4 MG/2 ML VIAL IVP PRN ×2 (08:52→15:06)
[2021-09-27] MEDS: Venlafaxine XR (24 HR) 37.5 MG CAP.ER.24H PO SCH (08:54)
[2021-09-27 14:37] VITALS: BP 122/74; PULSE 72; TEMP 98.5; O2SAT 94
== END 2021-09-27 17:04 | disposition home health service (06) | DRG 389 ==
LOC: 3ANU → SUATTDRO 13:23
PROVIDERS: ADMIT Hospitalist; ATTEND Family Medicine

== ENCOUNTER 2021-12-20 18:02 | Observation (INO) ==
[2021-12-21] MEDS ORDERED: Naloxone 0.4 MG/ML INJ IVP PRN (00:34)
[2021-12-21] MEDS ORDERED: Melatonin 3 MG TABLET PO PRN (00:34)
[2021-12-21 01:54] LABS: Basophils # 0.1 K/mcL (0.0-0.2); Basophils % 0.7 %; Hematocrit 39.3 % (35.3-44.9); Hemoglobin 13.2 g/dL (11.5-15.4); Immature Granulocytes % 4.5 % (0-4); Lymphocytes # 0.6 K/mcL (0.6-4.6); Lymphocytes % 4.5 %; Mean Corpuscular HGB Conc 33.6 g/dL (31.6-35.5); Mean Corpuscular Volume 95.2 fL (83.0-100.0); Mean Platelet Volume 10.4 fL (9.4-12.4); Monocytes # 0.5 K/mcL (0.0-1.3); Monocytes % 3.5 %; Neutrophils # 11.7 K/mcL (1.6-8.9); Nucleated Red Blood Cells 0.1 /100 WBC (0); Platelet Count 245 K/mcL (140-400); Red Blood Count 4.13 M/mcL (3.82-4.97); Red Cell Distribution Width 15.1 % (11.5-14.5); Segmented Neutrophils % 86.8 %; White Blood Count 13.5 K/mcL (4.3-11.1)
[2021-12-21 02:08] LABS: Heparin anti-factor XA LMWH 0.82 IU/mL (0.50-1.10)
[2021-12-21] MEDS ORDERED: Perflutren Lipid Microsphere 1.3 ML in 0.9 % Sodium Chloride 8.7 ML IVP PRN (02:08)
[2021-12-21 02:09] LABS: Activated Partial Thrombo Time 33.7 Seconds (26.0-36.0)
[2021-12-21 02:18] LABS: Alanine Aminotransferase 12 Units/L (7-52); Albumin 3.1 g/dL (3.5-5.7); Albumin/Globulin Ratio 1.5 (1.1-2.2); Alkaline Phosphatase 66 Units/L (34-104); Aspartate Amino Transferase 13 Units/L (13-39); BUN/Creatinine Ratio 36 (6-26); Bilirubin,Total 0.5 mg/dL (0.3-1.0); Blood Urea Nitrogen 25 mg/dL (8-23); Calcium 9.2 mg/dL (8.6-10.3); Carbon Dioxide 28 mEq/L (23-29); Chloride 100 mEq/L (98-107); Globulin 2.1 g/dL (2.4-3.5); Glucose 214 mg/dL (70-105); Lactate Dehydrogenase 163 Units/L (140-271); Magnesium 1.8 mg/dL (1.6-2.6); Osmolality,Calculated 293 (280-300); Phosphorous 4.4 mg/dL (2.7-4.5); Potassium 4.1 mEq/L (3.5-5.1); Sodium 136 mEq/L (136-145); Total Protein 5.2 g/dL (6.4-8.9); Troponin I 0.18 ng/mL (< 0.04); eGFR For African Americans > 60 (> 60); eGFR For Non-African Americans > 60 (> 60)
[2021-12-21] MEDS ORDERED: *HR* Heparin 5,000 UNIT/ML VIAL IVP ONE (02:34)
[2021-12-21] MEDS ORDERED: *HR* Heparin 5,000 UNIT/ML VIAL IVP PRN ×2 (02:34)
[2021-12-21] MEDS ORDERED: Heparin 25,000UNIT/250ML 1/2NS 25,000 UNIT/250 ML IV.SOLN IVC SCH (02:45)
[2021-12-21] MEDS: Ipratropium/Albuterol Neb 3 ML IH SCH ×4 (03:32→20:32)
[2021-12-21] MEDS: predniSONE 20 MG TABLET PO SCH (08:02)
[2021-12-21] MEDS: Venlafaxine XR (24 HR) 37.5 MG CAP.ER.24H PO SCH (08:03)
[2021-12-21] MEDS: Aspirin 81 MG TAB.CHEW PO SCH (08:03)
[2021-12-21] MEDS ORDERED: cefTRIAXone 1,000 MG in 0.9 % Sodium Chloride Mini Bag 100 ML IVPB SCH (09:00)
[2021-12-21] MEDS ORDERED: Azithromycin 500 MG in 0.9 % Sodium Chloride 250 ML IVPB SCH (09:00)
[2021-12-21] MEDS ORDERED: 0.9 % Sodium Chloride 2,000 ML ONE (14:22)
[2021-12-21] MEDS ORDERED: ISOVUE-370 200 ML INFUS..BTL ONE (14:23)
[2021-12-21] MEDS ORDERED: *HR* Heparin 10,000 UNIT/10 ML VIAL ONE (14:23)
[2021-12-21] MEDS ORDERED: Heparin 1,000 UNITS/500 mL 500 ML ONE (14:23)
[2021-12-21] MEDS ORDERED: Nitroglycerin 1,000 MCG/5 ML VIAL IV ONE (14:23)
[2021-12-21] MEDS ORDERED: *HR* FentaNYL (PF) 100 MCG/2 ML VIAL ONE (14:34)
[2021-12-21] MEDS ORDERED: *HR* Midazolam HCl 2 MG/2 ML VIAL ONE (14:34)
[2021-12-21] MEDS ORDERED: Famotidine 20 MG/2 ML VIAL ONE (14:40)
[2021-12-21] MEDS ORDERED: *HR* Ticagrelor 90 MG TABLET ONE (15:13)
[2021-12-21] MEDS ORDERED: Tirofiban 12.5 MG/250ML 12.5 MG/250 ML BAG ONE (15:20)
[2021-12-21] MEDS: Budesonide/Formoterol 160/4.5 1 PUFF INH IH SCH (20:40)
[2021-12-21] MEDS ORDERED: PRAVASTATIN SODIUM 80 MG PO SCH (21:00)
[2021-12-21] MEDS ORDERED: *HR* Ticagrelor 90 MG TABLET PO SCH (21:00)
[2021-12-22 03:09] LABS: Basophils # 0.1 K/mcL (0.0-0.2); Basophils % 0.7 %; Eosinophils % 0.2 %; Hematocrit 34.7 % (35.3-44.9); Immature Granulocytes % 5.4 % (0-4); Lymphocytes # 0.9 K/mcL (0.6-4.6); Lymphocytes % 6.9 %; Mean Corpuscular HGB Conc 32.6 g/dL (31.6-35.5); Mean Corpuscular Hemoglobin 31.7 pg (28.0-33.3); Mean Corpuscular Volume 97.2 fL (83.0-100.0); Mean Platelet Volume 10.4 fL (9.4-12.4); Monocytes # 0.6 K/mcL (0.0-1.3); Neutrophils # 10.2 K/mcL (1.6-8.9); Platelet Count 232 K/mcL (140-400); Red Blood Count 3.57 M/mcL (3.82-4.97); Red Cell Distribution Width 15.5 % (11.5-14.5); Segmented Neutrophils % 81.8 %; White Blood Count 12.5 K/mcL (4.3-11.1)
[2021-12-22 03:10] LABS: Hemoglobin 11.3 g/dL (11.5-15.4)
[2021-12-22 03:44] LABS: BUN/Creatinine Ratio 29 (6-26); Blood Urea Nitrogen 22 mg/dL (8-23); Calcium 8.6 mg/dL (8.6-10.3); Carbon Dioxide 29 mEq/L (23-29); Chloride 101 mEq/L (98-107); Glucose 131 mg/dL (70-105); Magnesium 1.9 mg/dL (1.6-2.6); Osmolality,Calculated 291 (280-300); Potassium 3.9 mEq/L (3.5-5.1); Sodium 138 mEq/L (136-145); eGFR For African Americans > 60 (> 60); eGFR For Non-African Americans > 60 (> 60)
[2021-12-22] MEDS: Ipratropium/Albuterol Neb 3 ML IH SCH ×2 (04:25→08:13)
[2021-12-22 08:13] VITALS: BP 96/62; PULSE 108; TEMP 97.6; O2SAT 100
[2021-12-22] MEDS: Budesonide/Formoterol 160/4.5 1 PUFF INH IH SCH (08:15)
[2021-12-22] MEDS ORDERED: (Roflumilast [Daliresp] 500 MCG Tablet) PO SCH (09:00)
[2021-12-22] MEDS: predniSONE 20 MG TABLET PO SCH (09:00)
[2021-12-22] MEDS ORDERED: Furosemide 20 MG TABLET PO SCH (09:00)
[2021-12-22] MEDS ORDERED: (Mirabegron [Myrbetriq] 50 MG Tab.Er.24h) PO SCH (09:00)
[2021-12-22] MEDS ORDERED: Cholecalciferol (D-3) 1,000 UNIT (25MCG) TABLET PO SCH (09:00)
[2021-12-22] MEDS: Aspirin 81 MG TAB.CHEW PO SCH (09:14)
[2021-12-22] MEDS: Venlafaxine XR (24 HR) 37.5 MG CAP.ER.24H PO SCH (09:14)
[2021-12-22] MEDS ORDERED: Tiotropium 10 INH DOSE IH SCH (10:00)
[2021-12-22 10:17] LABS: Basophils # 0.1 K/mcL (0.0-0.2); Basophils % 0.6 %; Eosinophils % 0.2 %; Hematocrit 35.3 % (35.3-44.9); Hemoglobin 11.5 g/dL (11.5-15.4); Immature Granulocytes % 5.3 % (0-4); Lymphocytes # 1.1 K/mcL (0.6-4.6); Lymphocytes % 7.8 %; Mean Corpuscular HGB Conc 32.6 g/dL (31.6-35.5); Mean Corpuscular Hemoglobin 31.8 pg (28.0-33.3); Mean Corpuscular Volume 97.5 fL (83.0-100.0); Mean Platelet Volume 10.6 fL (9.4-12.4); Monocytes # 0.7 K/mcL (0.0-1.3); Monocytes % 5.1 %; Nucleated Red Blood Cells 0.2 /100 WBC (0); Platelet Count 256 K/mcL (140-400); Red Blood Count 3.62 M/mcL (3.82-4.97); Red Cell Distribution Width 15.6 % (11.5-14.5); White Blood Count 13.9 K/mcL (4.3-11.1)
[2021-12-22 10:22] LABS: Neutrophils # 11.3 K/mcL (1.6-8.9)
[2021-12-22 10:45] LABS: Platelet Estimate Normal (Normal)
== END 2021-12-22 14:50 | disposition home or self-care (01) ==
LOC: 3ANU → SUATTDRO 12-21 00:02
PROVIDERS: ADMIT General Practice; ATTEND Family Medicine

== ENCOUNTER 2022-01-07 18:33 | Inpatient (IN) ==
[2022-01-07] MEDS ORDERED: Naloxone 0.4 MG/ML INJ IVP PRN (21:43)
[2022-01-07] MEDS ORDERED: 0.9 % Sodium Chloride 500 ML IVC PRN (23:05)
[2022-01-07] MEDS ORDERED: hydrOXYzine pamoate 25 MG CAPSULE PO PRN (23:07)
[2022-01-08 00:07] LABS: Bilirubin,Urine Negative (Negative); Blood,Urine Negative (Negative); Clarity,Urine Clear (Clear); Color,Urine Light-Yellow (Yellow); Glucose,Urine (UA) 500 mg/dL (Normal); Ketones,Urine Negative (Negative); Leukocyte Esterase,Urine Negative (Negative); Mucus,Urine Few per lpf (None-Few); Nitrite,Urine Negative (Negative); Protein,Urine Negative (Neg-Trace); RBC,Urine 0-3 per hpf (0-3); Specific Gravity,Urine 1.015 (1.010-1.025); Urobilinogen,Urine Normal (Normal); WBC,Urine 0-3 per hpf (0-3)
[2022-01-08] MEDS ORDERED: *HR* Dextrose 50 % in Water (Syg) 50 ML SYRINGE IVP PRN (01:05)
[2022-01-08] MEDS ORDERED: Dextrose Gel 15 GM/37.5 ML TUBE PO PRN ×2 (01:05)
[2022-01-08] MEDS ORDERED: D5% in Water 1,000 ML IVC PRN (01:05)
[2022-01-08] MEDS: Insulin LISPRO 300 UNITS/3 ML VIAL SUBQ SCH ×6 (02:21→20:36)
[2022-01-08] MEDS: Ipratropium/Albuterol Neb 3 ML IH SCH ×4 (03:54→20:08)
[2022-01-08 03:58] LABS: BUN/Creatinine Ratio 54 (6-26); Blood Urea Nitrogen 34 mg/dL (8-23); Calcium 8.7 mg/dL (8.6-10.3); Carbon Dioxide 26 mEq/L (23-29); Chloride 99 mEq/L (98-107); Chol/HDL Ratio 2.6 (0-4.9); Cholesterol 155 mg/dL (< 200); Glucose 199 mg/dL (70-105); HDL Cholesterol 60 mg/dL (40-59); LDL Cholesterol,Calculated 74 mg/dL (< 100); Osmolality,Calculated 293 (280-300); Potassium 4.3 mEq/L (3.5-5.1); Sodium 135 mEq/L (136-145); Triglycerides 105 mg/dL (< 150); eGFR For African Americans > 60 (> 60); eGFR For Non-African Americans > 60 (> 60)
[2022-01-08 05:35] LABS: Nucleated Red Blood Cells 0.3 /100 WBC (0)
[2022-01-08 05:41] LABS: Prothrombin Time 10.7 Seconds (9.4-12.1)
[2022-01-08 05:45] LABS: Basophils % 0.3 %; Eosinophils % 0.3 %; Hematocrit 31.5 % (35.3-44.9); Hemoglobin 10.7 g/dL (11.5-15.4)
[2022-01-08 05:47] LABS: Immature Granulocytes % 4.6 % (0-4); Immature Platelets 3.3 % (1.1-6.1); Lymphocytes # 1.4 K/mcL (0.6-4.6); Lymphocytes % 9.6 %; Mean Corpuscular Hemoglobin 32.1 pg (28.0-33.3); Mean Corpuscular Volume 94.6 fL (83.0-100.0); Monocytes # 0.7 K/mcL (0.0-1.3); Monocytes % 4.8 %; Neutrophils # 11.9 K/mcL (1.6-8.9); Platelet Count 351 K/mcL (140-400); Red Blood Count 3.33 M/mcL (3.82-4.97); Red Cell Distribution Width 16.2 % (11.5-14.5); Segmented Neutrophils % 80.4 %; White Blood Count 14.8 K/mcL (4.3-11.1)
[2022-01-08] MEDS ORDERED: Perflutren Lipid Microsphere 1.3 ML in 0.9 % Sodium Chloride 8.7 ML IVP PRN (07:42)
[2022-01-08] MEDS: *HR* Enoxaparin 40 MG/0.4 ML SYRINGE SQ SCH (07:46)
[2022-01-08] MEDS: predniSONE 20 MG TABLET PO SCH (07:46)
[2022-01-08] MEDS: Cholecalciferol (D-3) 1,000 UNIT (25MCG) TABLET PO SCH (07:46)
[2022-01-08] MEDS: Aspirin Enteric Coated 81 MG Tablet PO SCH (07:46)
[2022-01-08] MEDS: Venlafaxine XR (24 HR) 37.5 MG CAP.ER.24H PO SCH (07:46)
[2022-01-08] MEDS ORDERED: (Mirabegron [Myrbetriq] 50 MG Tab.Er.24h) PO SCH (09:00)
[2022-01-08] MEDS ORDERED: (Roflumilast [Daliresp] 500 MCG Tablet) PO SCH (09:00)
[2022-01-08] MEDS ORDERED: PRAVASTATIN SODIUM 80 MG PO SCH (09:00)
[2022-01-08] MEDS ORDERED: predniSONE 20 MG TABLET PO SCH (09:00)
[2022-01-08] MEDS: Ondansetron 4 MG/2 ML VIAL IVP PRN (10:00)
[2022-01-08] MEDS: Morphine Sulfate 2 MG/ML SYRINGE IVP PRN ×2 (11:32→16:57)
[2022-01-08] MEDS: (Mirabegron [Myrbetriq] 50 MG Tab.Er.24h) PO SCH (12:08)
[2022-01-08] MEDS: PRAVASTATIN SODIUM 80 MG PO SCH (12:08)
[2022-01-08 13:46] LABS: Estimated Average Glucose 169 mg/dl; Hemoglobin A1C 7.5 %
[2022-01-09] MEDS: Morphine Sulfate 2 MG/ML SYRINGE IVP PRN ×2 (00:40→08:54)
[2022-01-09] MEDS: Ipratropium/Albuterol Neb 3 ML IH SCH (04:16)
[2022-01-09] MEDS ORDERED: Ipratropium/Albuterol Neb 3 ML IH PRN (05:00)
[2022-01-09] MEDS: Venlafaxine XR (24 HR) 37.5 MG CAP.ER.24H PO SCH (08:15)
[2022-01-09] MEDS: Insulin LISPRO 300 UNITS/3 ML VIAL SUBQ SCH ×4 (08:15→19:50)
[2022-01-09] MEDS: Cholecalciferol (D-3) 1,000 UNIT (25MCG) TABLET PO SCH (08:16)
[2022-01-09] MEDS: *HR* Enoxaparin 40 MG/0.4 ML SYRINGE SQ SCH (08:16)
[2022-01-09] MEDS: predniSONE 20 MG TABLET PO SCH (08:16)
[2022-01-09] MEDS: (Mirabegron [Myrbetriq] 50 MG Tab.Er.24h) PO SCH (08:16)
[2022-01-09] MEDS: PRAVASTATIN SODIUM 80 MG PO SCH (08:16)
[2022-01-09] MEDS: Aspirin Enteric Coated 81 MG Tablet PO SCH (08:16)
[2022-01-09] MEDS ORDERED: (Mirabegron [Myrbetriq] 50 MG Tab.Er.24h) PO SCH (09:00)
[2022-01-09] MEDS: Ondansetron 4 MG/2 ML VIAL IVP PRN (10:22)
[2022-01-09] MEDS: Acetaminophen 325 MG TABLET PO PRN (13:40)
[2022-01-10] MEDS: Morphine Sulfate 2 MG/ML SYRINGE IVP PRN (03:37)
[2022-01-10] MEDS: Insulin LISPRO 300 UNITS/3 ML VIAL SUBQ SCH ×4 (07:34→20:17)
[2022-01-10] MEDS: Cholecalciferol (D-3) 1,000 UNIT (25MCG) TABLET PO SCH (08:52)
[2022-01-10] MEDS: Venlafaxine XR (24 HR) 37.5 MG CAP.ER.24H PO SCH (08:53)
[2022-01-10] MEDS: Aspirin Enteric Coated 81 MG Tablet PO SCH (08:53)
[2022-01-10] MEDS: predniSONE 20 MG TABLET PO SCH (08:53)
[2022-01-10] MEDS: Acetaminophen 325 MG TABLET PO PRN (08:53)
[2022-01-10] MEDS: (Mirabegron [Myrbetriq] 50 MG Tab.Er.24h) PO SCH (08:54)
[2022-01-10] MEDS: PRAVASTATIN SODIUM 80 MG PO SCH (08:54)
[2022-01-10] MEDS: *HR* Enoxaparin 40 MG/0.4 ML SYRINGE SQ SCH (08:54)
[2022-01-10 18:20] LABS: Basophils # 0.1 K/mcL (0.0-0.2); Basophils % 0.3 %; Hematocrit 33.8 % (35.3-44.9); Hemoglobin 10.9 g/dL (11.5-15.4); Immature Granulocytes % 2.6 % (0-4); Lymphocytes # 0.5 K/mcL (0.6-4.6); Lymphocytes % 3.2 %; Mean Corpuscular HGB Conc 32.2 g/dL (31.6-35.5); Mean Corpuscular Hemoglobin 32.3 pg (28.0-33.3); Mean Corpuscular Volume 100.3 fL (83.0-100.0); Mean Platelet Volume 9.9 fL (9.4-12.4); Monocytes # 0.3 K/mcL (0.0-1.3); Neutrophils # 13.2 K/mcL (1.6-8.9); Platelet Count 358 K/mcL (140-400); Red Blood Count 3.37 M/mcL (3.82-4.97); Red Cell Distribution Width 15.3 % (11.5-14.5); Segmented Neutrophils % 91.9 %; White Blood Count 14.4 K/mcL (4.3-11.1)
[2022-01-10 18:39] LABS: BUN/Creatinine Ratio 25 (6-26); Blood Urea Nitrogen 16 mg/dL (8-23); Calcium 8.4 mg/dL (8.6-10.3); Carbon Dioxide 27 mEq/L (23-29); Chloride 98 mEq/L (98-107); Glucose 300 mg/dL (70-105); Osmolality,Calculated 284 (280-300); Potassium 4.4 mEq/L (3.5-5.1); Sodium 131 mEq/L (136-145); eGFR For African Americans > 60 (> 60); eGFR For Non-African Americans > 60 (> 60)
[2022-01-11] MEDS: Morphine Sulfate 2 MG/ML SYRINGE IVP PRN ×4 (00:05→22:19)
[2022-01-11 01:49] LABS: Eosinophils % 0.6 %; Mean Corpuscular Volume 98.8 fL (83.0-100.0); Nucleated Red Blood Cells 0.2 /100 WBC (0)
[2022-01-11 01:51] LABS: Basophils % 0.3 %; Eosinophils # 0.1 K/mcL (0.0-0.6); Hematocrit 31.9 % (35.3-44.9); Hemoglobin 10.4 g/dL (11.5-15.4); Lymphocytes # 1.1 K/mcL (0.6-4.6); Lymphocytes % 9.4 %; Mean Corpuscular HGB Conc 32.6 g/dL (31.6-35.5); Mean Corpuscular Hemoglobin 32.2 pg (28.0-33.3); Mean Platelet Volume 10.4 fL (9.4-12.4); Monocytes # 0.6 K/mcL (0.0-1.3); Monocytes % 5.5 %; Neutrophils # 9.3 K/mcL (1.6-8.9); Platelet Count 344 K/mcL (140-400); Red Blood Count 3.23 M/mcL (3.82-4.97); Red Cell Distribution Width 15.2 % (11.5-14.5); Segmented Neutrophils % 80.2 %; White Blood Count 11.6 K/mcL (4.3-11.1)
[2022-01-11 02:10] LABS: Platelet Estimate Normal (Normal)
[2022-01-11] MEDS: Cholecalciferol (D-3) 1,000 UNIT (25MCG) TABLET PO SCH (08:10)
[2022-01-11] MEDS: *HR* Enoxaparin 40 MG/0.4 ML SYRINGE SQ SCH (08:10)
[2022-01-11] MEDS: predniSONE 20 MG TABLET PO SCH (08:11)
[2022-01-11] MEDS: Venlafaxine XR (24 HR) 37.5 MG CAP.ER.24H PO SCH (08:11)
[2022-01-11] MEDS: PRAVASTATIN SODIUM 80 MG PO SCH (08:12)
[2022-01-11] MEDS: Aspirin Enteric Coated 81 MG Tablet PO SCH (08:12)
[2022-01-11] MEDS: (Mirabegron [Myrbetriq] 50 MG Tab.Er.24h) PO SCH (08:12)
[2022-01-11] MEDS: Insulin LISPRO 300 UNITS/3 ML VIAL SUBQ SCH ×4 (08:17→20:56)
[2022-01-11] MEDS: ATOVAQUONE 750 MG/5 ML PO SCH (13:32)
[2022-01-12] MEDS: Insulin LISPRO 300 UNITS/3 ML VIAL SUBQ SCH ×4 (07:54→20:36)
[2022-01-12] MEDS ORDERED: *HR* OxyCODONE/APAP 5/325 TABLET PO PRN (07:55)
[2022-01-12] MEDS: Venlafaxine XR (24 HR) 37.5 MG CAP.ER.24H PO SCH (08:40)
[2022-01-12] MEDS: Aspirin Enteric Coated 81 MG Tablet PO SCH (08:40)
[2022-01-12] MEDS: predniSONE 20 MG TABLET PO SCH (08:40)
[2022-01-12] MEDS: PRAVASTATIN SODIUM 80 MG PO SCH (08:41)
[2022-01-12] MEDS: (Mirabegron [Myrbetriq] 50 MG Tab.Er.24h) PO SCH (08:41)
[2022-01-12] MEDS: *HR* Enoxaparin 40 MG/0.4 ML SYRINGE SQ SCH (08:42)
[2022-01-12] MEDS: Cholecalciferol (D-3) 1,000 UNIT (25MCG) TABLET PO SCH (11:29)
[2022-01-12] MEDS: ATOVAQUONE 750 MG/5 ML PO SCH (11:29)
[2022-01-13] MEDS: Insulin LISPRO 300 UNITS/3 ML VIAL SUBQ SCH ×4 (07:42→20:50)
[2022-01-13] MEDS: Aspirin Enteric Coated 81 MG Tablet PO SCH (08:32)
[2022-01-13] MEDS: predniSONE 20 MG TABLET PO SCH (08:32)
[2022-01-13] MEDS: Venlafaxine XR (24 HR) 37.5 MG CAP.ER.24H PO SCH (08:32)
[2022-01-13] MEDS: Cholecalciferol (D-3) 1,000 UNIT (25MCG) TABLET PO SCH (08:32)
[2022-01-13] MEDS: PRAVASTATIN SODIUM 80 MG PO SCH (08:33)
[2022-01-13] MEDS: (Mirabegron [Myrbetriq] 50 MG Tab.Er.24h) PO SCH (08:34)
[2022-01-13] MEDS: *HR* Enoxaparin 40 MG/0.4 ML SYRINGE SQ SCH (08:35)
[2022-01-13] MEDS: ATOVAQUONE 750 MG/5 ML PO SCH (08:55)
[2022-01-14] MEDS: Insulin LISPRO 300 UNITS/3 ML VIAL SUBQ SCH ×4 (07:07→20:38)
[2022-01-14] MEDS: predniSONE 20 MG TABLET PO SCH (09:04)
[2022-01-14] MEDS: Cholecalciferol (D-3) 1,000 UNIT (25MCG) TABLET PO SCH (09:04)
[2022-01-14] MEDS: Venlafaxine XR (24 HR) 37.5 MG CAP.ER.24H PO SCH (09:05)
[2022-01-14] MEDS: *HR* Enoxaparin 40 MG/0.4 ML SYRINGE SQ SCH (09:05)
[2022-01-14] MEDS: Aspirin Enteric Coated 81 MG Tablet PO SCH (09:05)
[2022-01-14] MEDS: PRAVASTATIN SODIUM 80 MG PO SCH (09:06)
[2022-01-14] MEDS: (Mirabegron [Myrbetriq] 50 MG Tab.Er.24h) PO SCH (09:06)
[2022-01-14] MEDS: Acetaminophen 325 MG TABLET PO PRN ×2 (09:07→16:33)
[2022-01-14] MEDS: ATOVAQUONE 750 MG/5 ML PO SCH (09:08)
[2022-01-15] MEDS: Insulin LISPRO 300 UNITS/3 ML VIAL SUBQ SCH ×2 (07:22→11:47)
[2022-01-15] MEDS: predniSONE 20 MG TABLET PO SCH (08:45)
[2022-01-15] MEDS: Cholecalciferol (D-3) 1,000 UNIT (25MCG) TABLET PO SCH (08:45)
[2022-01-15] MEDS: Venlafaxine XR (24 HR) 37.5 MG CAP.ER.24H PO SCH (08:45)
[2022-01-15] MEDS: Aspirin Enteric Coated 81 MG Tablet PO SCH (08:45)
[2022-01-15] MEDS: (Mirabegron [Myrbetriq] 50 MG Tab.Er.24h) PO SCH (08:46)
[2022-01-15] MEDS: PRAVASTATIN SODIUM 80 MG PO SCH (08:46)
[2022-01-15] MEDS: ATOVAQUONE 750 MG/5 ML PO SCH (08:46)
[2022-01-15] MEDS: *HR* Enoxaparin 40 MG/0.4 ML SYRINGE SQ SCH (08:46)
[2022-01-15] MEDS: Acetaminophen 325 MG TABLET PO PRN (08:49)
[2022-01-15 10:11] LABS: Influenza A PCR Negative (Negative); Influenza B PCR Negative (Negative); Resp. Syncytial Virus PCR Negative (Negative)
[2022-01-15 10:29] VITALS: BP 141/85; PULSE 100; TEMP 97.6; O2SAT 98
[2022-01-15 11:43] LABS: SARS-CoV-2 by PCR (In House) Negative (Negative)
== END 2022-01-15 14:26 | disposition other institution (70) | DRG 281 ==
LOC: 2ANU → SUATTDRO 21:07 → UNDODISOB 01-08 14:27
PROVIDERS: ADMIT Family Medicine; ATTEND Internal Medicine